=== PATIENT | female | born 1955 ===

== ENCOUNTER 2016-04-24 12:55 | Emergency (ER) | payer OTHER ==
[2016-04-24 13:16] LABS: APPEARANCE,URINE Clear; BILIRUBIN,URINE NEGATIVE (NEGATIVE); COLOR,URINE Yellow; GLUCOSE, URINE (UA) NEGATIVE (NEGATIVE); KETONES,URINE NEGATIVE (NEGATIVE); LEUKOCYTE ESTERASE ,URINE NEGATIVE (NEGATIVE); NITRATE,URINE NEGATIVE (NEGATIVE); OCCULT BLOOD,URINE TRACE INTACT (NEG-TRACE)
[2016-04-24 13:21] LABS: RBC,URINE 0-2 (0-3AV/HPF); WBC,URINE 0-2 (0-5AV/HPF)
[2016-04-24 13:23] VITALS: RESP 20; TEMP 97.2; O2SAT 97
[2016-04-24 14:14] VITALS: BP 107/57; PULSE 60
== END 2016-04-24 14:15 | disposition home or self-care (01) ==
LOC: ED 12:55
DX: N39.0 Urinary tract infection, site not specified (principal)
CPT/HCPCS: 81001; 99282; 99283

== ENCOUNTER 2016-09-17 23:28 | Emergency (ER) | payer OTHER ==
[2016-09-17 23:51] VITALS: PULSE 54; RESP 20; TEMP 97.8; O2SAT 98
[2016-09-18 00:16] VITALS: BP 129/62
== END 2016-09-18 00:22 | disposition home or self-care (01) ==
LOC: ED 23:28
DX: S61.211A Laceration without foreign body of left index finger without damage to nail, initial encounter (principal); W26.0XXA Contact with knife, initial encounter; Y93.G3 Activity, cooking and baking
CPT/HCPCS: 99283

== ENCOUNTER 2016-12-14 21:49 | Emergency (ER) | payer OTHER ==
[2016-12-14] MEDS ORDERED: KETOROLAC TROMETHAMINE 30 MG/ML SOL IM ONE (22:03)
[2016-12-14] MEDS ORDERED: KETOROLAC TROMETHAMINE 30 MG/ML SOL ONE (22:05)
[2016-12-15 01:19] VITALS: BP 116/55; PULSE 59; RESP 24; TEMP 97.4; O2SAT 94
== END 2016-12-14 22:50 | disposition home or self-care (01) ==
LOC: ED 21:49
DX: M54.5 Low back pain (principal); G89.29 Other chronic pain
CPT/HCPCS: 96372; 99282; 99283; J1885

== ENCOUNTER 2017-06-23 12:10 | Emergency (ER) | payer OTHER ==
[2017-06-23] MEDS ORDERED: APAP/HYDROCODONE 325/5 TAB PO ONE (12:56)
[2017-06-23] MEDS ORDERED: APAP/HYDROCODONE 325/5 TAB ONE (12:57)
[2017-06-23 13:07] VITALS: BP 111/57; PULSE 56; RESP 20; TEMP 96.6; O2SAT 98
== END 2017-06-23 13:45 | disposition home or self-care (01) ==
LOC: ED 12:10
DX: S93.401A Sprain of unspecified ligament of right ankle, initial encounter (principal); S83.91XA Sprain of unspecified site of right knee, initial encounter; S73.101A Unspecified sprain of right hip, initial encounter; V00.138A Other skateboard accident, initial encounter
CPT/HCPCS: 73501; 73560; 73610; 99282; A9270-GY

== ENCOUNTER 2017-11-02 01:16 | Emergency (ER) | payer OTHER ==
[2017-11-02 01:25] VITALS: TEMP 98
[2017-11-02 01:45] LABS: BASOPHILS % (AUTO) 1 % (0-3); EOSINOPHILS % (AUTO) 5 % (0-9); HEMATOCRIT 41 % (35-47); HEMOGLOBIN 13.4 gm/dl (12.0-15.5); LYMPHOCYTES % (AUTO) 40.3 % (10-50); MEAN CORPUSCULAR HGB CONC 32.6 gm/dl (32.0-36.0); MEAN CORPUSCULAR VOLUME 89 fL (81-99); MONOCYTES % (AUTO) 8.4 % (0-12); NEUTROPHILS % (AUTO) 45.9 % (37-80)
[2017-11-02 02:02] LABS: BLOOD UREA NITROGEN 12 mg/dl (7-18); CARBON DIOXIDE 28.8 mEq/L (21-32); CHLORIDE 106 mMol/L (98-107); CREATINE KINASE 79 U/L (26-192); CREATININE 0.66 mg/dl (0.60-1.00); GLUCOSE 122 mg/dl (74-106); POTASSIUM 3.5 mMol/L (3.5-5.1); SODIUM 141 mMol/L (136-145); TROP I < 0.017 ng/ml (0.000-0.056)
[2017-11-02 04:21] VITALS: BP 106/58; PULSE 51; RESP 22; O2SAT 97
== END 2017-11-02 04:12 | disposition home or self-care (01) ==
LOC: ED 01:16
DX: J43.9 Emphysema, unspecified (principal)
CPT/HCPCS: 36415; 71046; 80048; 82550; 84484; 85025; 85378; 93005; 99283; 99285

== ENCOUNTER 2017-12-29 13:48 | Emergency (ER) | payer OTHER ==
[2017-12-29 14:03] VITALS: RESP 22; TEMP 97
[2017-12-29] MEDS ORDERED: KETOROLAC TROMETHAMINE 30 MG/ML SOL IM ONE (14:40)
[2017-12-29] MEDS ORDERED: KETOROLAC TROMETHAMINE 30 MG/ML SOL ONE (14:42)
[2017-12-29 15:10] VITALS: BP 141/83; PULSE 64; O2SAT 95
== END 2017-12-29 15:03 | disposition home or self-care (01) ==
LOC: ED 13:48
DX: M54.5 Low back pain (principal)
CPT/HCPCS: 96372; 99282; 99283; J1885

== ENCOUNTER 2018-01-15 00:25 | Emergency (ER) | payer OTHER ==
[2018-01-15] MEDS ORDERED: METOPROLOL TARTRATE 5 MG/5 ML SOL IV ONE ×2 (00:27→02:26)
[2018-01-15] MEDS: METOPROLOL TARTRATE 5 MG/5 ML SOL IV SCH ×3 (00:29→00:41)
[2018-01-15 00:38] VITALS: TEMP 97.6
[2018-01-15] MEDS ORDERED: AMIODARONE 50 MG/ML 450 MG in DEXTROSE 250 ML 250 ML IV ONE (00:44)
[2018-01-15] MEDS ORDERED: AMIODARONE 50 MG/ML SOL IV ONE (00:44)
[2018-01-15] MEDS ORDERED: SODIUM CHLORIDE 0.9% FLUSH 10 ML SOL IV PRN (00:44)
[2018-01-15 00:50] LABS: BASOPHILS % (AUTO) 1 % (0-3); EOSINOPHILS % (AUTO) 3 % (0-9); HEMATOCRIT 47 % (35-47); HEMOGLOBIN 15.3 gm/dl (12.0-15.5); LYMPHOCYTES % (AUTO) 40.9 % (10-50); MEAN CORPUSCULAR HEMOGLOBIN 28.2 pg (27.0-32.0); MEAN CORPUSCULAR HGB CONC 32.3 gm/dl (32.0-36.0); MEAN CORPUSCULAR VOLUME 87 fL (81-99); MONOCYTES % (AUTO) 6.7 % (0-12); NEUTROPHILS % (AUTO) 48.1 % (37-80)
[2018-01-15 01:16] LABS: ALBUMIN 3.3 gm/dl (3.4-5.0); ALKALINE PHOSPHATASE 210 IU/L (46-116); ALT 20 IU/L (14-63); AST 14 IU/L (15-37); BILIRUBIN,DIRECT 0.1 mg/dl (0.0-0.2); BILIRUBIN,TOTAL 0.6 mg/dl (0.2-1.0); BLOOD UREA NITROGEN 12 mg/dl (7-18); CALCIUM 8.7 mg/dl (8.5-10.1); CARBON DIOXIDE 29.4 mEq/L (21-32); CHLORIDE 109 mMol/L (98-107); CREATININE 0.87 mg/dl (0.60-1.00); GLUCOSE 145 mg/dl (74-106); POTASSIUM 3.5 mMol/L (3.5-5.1); SODIUM 145 mMol/L (136-145); THYROID STIMULATING HORMONE 1.528 uIU/ml (0.358-3.740); TOTAL PROTEIN 7.6 gm/dl (6.4-8.2); TROP I < 0.017 ng/ml (0.000-0.056)
[2018-01-15 02:23] VITALS: BP 114/71; PULSE 55; RESP 17; O2SAT 95
[2018-01-15] MEDS ORDERED: AMIODARONE 50 MG/ML 600 MG in DEXTROSE 250 ML 250 ML IV ONE (06:45)
== END 2018-01-15 02:05 | disposition home or self-care (01) ==
LOC: ED 00:25
DX: I48.91 Unspecified atrial fibrillation (principal)
CPT/HCPCS: 36415; 71045; 80048; 80076; 84443; 84484; 85025; 93005; 96374; 99284; 99285; J3490

== ENCOUNTER 2018-02-01 12:02 | Outpatient (CLI) | payer OTHER ==
[2018-01-15 02:23] VITALS: O2SAT 95
== END 2018-02-01 12:03 | disposition home or self-care (01) ==
LOC: CONVCARE 12:02
PROVIDERS: ATTEND Orthopaedic Surgery
DX: M70.22 Olecranon bursitis, left elbow (principal)
CPT/HCPCS: 84550